=== PATIENT | male | born 1980 | race African-American/Black ===

== ENCOUNTER 2017-01-12 17:06 | Emergency (ER) | payer SELFPAY ==
--- NOTE | 2017-01-12 18:32 | ER Document Report ---
ED Psych Disorder / Suicide - General Chief Complaint: Psych Problem Stated Complaint: ANXIETY,CONFUSION Time Seen by Provider: 01/12/17 17:34 Mode of Arrival: Ambulatory Information source: Patient TRAVEL OUTSIDE OF THE [place] 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 [employer], he is here with a coworker who is also a friend, who reports that patient has been acting quite bizarrely over the past week or so, acting confused at times, paranoid at times, staring off into space, patient reports that he feels as though he is unable to focus, states that he has depression which seems to be getting worse, he abruptly quit his job over the phone today even though he is scheduled to remain in the area until January 24 for work, he had a recent conflict regarding an ex girlfriend who his coworker is friends with on Facebook who he thought there was some inappropraite relationship going on behind his back, patient admits that he has been taking Adderall 10 mg daily for the past few days which he obtained from a friend, he has never been prescribed Adderall but took it from a friend in the past and it helped him focus at the time so he self diagnosed himself as ADD, patient denies having any active suicidal or homicidal ideation but states that he does get extremely depressed at times and thought has crossed his mind before - Related Data Allergies/Adverse Reactions: No Known Allergies Allergy (Verified 01/12/17 17:24) Past Medical History - General Information source: Patient - Social History Smoking Status: Former Smoker Chew tobacco use (# tins/day): No Frequency of alcohol use: None Drug Abuse: None Family History: Reviewed & Not Pertinent Renal/ Medical History: Denies: Hx Peritoneal Dialysis Psychiatric Medical History: Reports: Hx Depression - Immunizations Hx Diphtheria, Pertussis, Tetanus Vaccination: Yes Review of Systems - Review of Systems Constitutional: No symptoms reported EENT: No symptoms reported Cardiovascular: No symptoms reported Respiratory: No symptoms reported Gastrointestinal: No symptoms reported Genitourinary: No symptoms reported Male Genitourinary: No symptoms reported Musculoskeletal: No symptoms reported Skin: No symptoms reported Hematologic/Lymphatic: No symptoms reported Neurological/Psychological: See HPI -: Yes All other systems reviewed and negative Physical Exam - Vital signs Vitals: Pulse Resp BP Pulse Ox 67 18 150/97 H 100 01/12/17 17:19 01/12/17 17:19 01/12/17 17:19 01/12/17 17:19 Interpretation: Normal - General General appearance: Appears well, Alert - HEENT Head: Normocephalic, Atraumatic Eyes: Normal Pupils: PERRL - Respiratory Respiratory status: No respiratory distress Chest status: Nontender Breath sounds: Normal Chest palpation: Normal - Cardiovascular Rhythm: Regular Heart sounds: Normal auscultation Murmur: No - Abdominal Inspection: Normal Distension: No distension Bowel sounds: Normal Tenderness: Nontender Organomegaly: No organomegaly - Back Back: Normal, Nontender - Extremities General upper extremity: Normal inspection, Nontender, Normal color, Normal ROM , Normal temperature General lower extremity: Normal inspection, Nontender, Normal color, Normal ROM , Normal temperature, Normal weight bearing. No: Ga's sign - Neurological Neuro grossly intact: Yes Cognition: Normal Orientation: AAOx4 [place] Coma Scale Eye Opening: Spontaneous [place] Coma Scale Verbal: Oriented [place] Coma Scale Motor: Obeys Commands Elizabeth Coma Scale Total: 15 Speech: Normal Motor strength normal: LUE, RUE, LLE, RLE Sensory: Normal - Psychological Associated symptoms: Flat affect - Skin Skin Temperature: Warm Skin Moisture: Dry Skin Color: Normal Course - Re-evaluation Re-evalutation: 01/12/17 20:26 Patient has somewhat of a bizarre affect on evaluation, at times he does stare off into space, seems to have some possible paranoid delusions as well, possible history of undiagnosed depression, he is not actively suicidal or homicidal at this time but he is agreeable to remaining in the emergency room overnight as a voluntary patient so that mental health can evaluate him in the morning and make recommendations - Vital Signs Vital signs: Temp Pulse Resp BP Pulse Ox 67 18 150/97 H 100 01/12/17 17:19 01/12/17 17:19 01/12/17 17:19 01/12/17 17:19 - Laboratory Result Diagrams: 01/12/17 18:50 01/12/17 18:50 Laboratory results interpreted by me: 01/12/17 18:50 BUN 6 L Total Protein 8.6 H Albumin 5.1 H Salicylates < 1.0 L Acetaminophen < 10 L - EKG Interpretation by Me EKG shows normal: Sinus rhythm Rate: Normal Rhythm: NSR Discharge - Discharge Clinical Impression: Mental health disorder Condition: Stable Disposition: PSYCH HOSP/UNIT
--- NOTE | 2017-01-12 19:16 | ER Document Report ---
ED Psych Disorder / Suicide - General Chief Complaint: Psych Problem Stated Complaint: ANXIETY,CONFUSION Time Seen by Provider: 01/12/17 17:34 Mode of Arrival: Ambulatory Notes: The patient is a 36-year-old male, past medical history anxiety, depression, presents with worsening anxiety, depression and lack of focus. He is also feeling mildly confused. TRAVEL OUTSIDE OF THE [place] IN LAST 30 DAYS: No - Related Data Allergies/Adverse Reactions: No Known Allergies Allergy (Verified 01/12/17 17:24) Past Medical History - General Information source: Patient - Social History Smoking Status: Former Smoker Chew tobacco use (# tins/day): No Frequency of alcohol use: None Drug Abuse: None Family History: Reviewed & Not Pertinent Renal/ Medical History: Denies: Hx Peritoneal Dialysis Psychiatric Medical History: Reports: Hx Depression - Immunizations Hx Diphtheria, Pertussis, Tetanus Vaccination: Yes Review of Systems - Review of Systems Notes: REVIEW OF SYSTEMS: CONSTITUTIONAL: -fevers, -chills EENT: -eye pain, -difficulty swallowing, -nasal congestion CARDIOVASCULAR:-chest pain, -syncope. RESPIRATORY: -cough, -SOB GASTROINTESTINAL: -abdominal pain, - nausea, -vomiting, -diarrhea GENITOURINARY: -dysuria, -hematuria MUSCULOSKELETAL: -back pain, -neck pain SKIN: -rash or skin lesions. HEMATOLOGIC: -easy bruising or bleeding. LYMPHATIC: -swollen, enlarged glands. NEUROLOGICAL: -altered mental status or loss of consciousness, -headache, - neurologic symptoms PSYCHIATRIC: +anxiety, +depression, -SI or HI ALL OTHER SYSTEMS REVIEWED AND NEGATIVE. Physical Exam - Vital signs Vitals: Pulse Resp BP Pulse Ox 67 18 150/97 H 100 01/12/17 17:19 01/12/17 17:19 01/12/17 17:19 01/12/17 17:19 - Notes Notes: PHYSICAL EXAMINATION: GENERAL: Well-appearing, well-nourished and in no acute distress. HEAD: Atraumatic, normocephalic. EYES: Pupils equal round and reactive to light, extraocular movements intact, sclera anicteric, conjunctiva are normal. ENT: nares patent, oropharynx clear without exudates. Moist mucous membranes. NECK: Normal range of motion, supple without lymphadenopathy LUNGS: Breath sounds clear to auscultation bilaterally and equal. No wheezes rales or rhonchi. HEART: Regular rate and rhythm without murmurs ABDOMEN: Soft, nontender, normoactive bowel sounds. No guarding, no rebound. No masses appreciated. EXTREMITIES: Normal range of motion, no pitting or edema. No cyanosis. NEUROLOGICAL: Cranial nerves grossly intact. Normal speech, normal gait. Normal sensory and motor exams. PSYCH: Normal mood, normal affect. SKIN: Warm, Dry, normal turgor, no rashes or lesions noted. Course - Vital Signs Vital signs: Temp Pulse Resp BP Pulse Ox 67 18 150/97 H 100 01/12/17 17:19 01/12/17 17:19 01/12/17 17:19 01/12/17 17:19
[2017-01-12 19:47] LABS: ABSOLUTE EOSINOPHILS # (AUTO) 0.2 10^3/uL (0.0-0.6); ABSOLUTE LYMPHOCYTES (AUTO) 1.4 10^3/uL (0.5-4.7); ABSOLUTE MONOCYTES (AUTO) 0.6 10^3/uL (0.1-1.4); ABSOLUTE NEUT (AUTO) 3.9 10^3/uL (1.7-8.2); BASOPHILS % (AUTO) 0.3 % (0-2); EOSINOPHILS % (AUTO) 2.5 % (0-6); HEMATOCRIT 44.7 % (37.9-51.0); HEMOGLOBIN 15.2 g/dL (13.5-17.0); HGB HCT DIFFERENCE 0.9; LYMPHOCYTES % (AUTO) 23.6 % (13-45); MEAN CORPUSCULAR HEMOGLOBIN 29.6 pg (27.0-33.4); MEAN CORPUSCULAR VOLUME 87 fl (80-97); MONOCYTES % (AUTO) 9.4 % (3-13); RED BLOOD COUNT 5.13 10^6/uL (4.35-5.55); RED CELL DISTRIBUTION WIDTH 13.8 % (11.5-14.0); SEGMENTED NEUTROPHILS % (AUTO) 64.2 % (42-78); WHITE BLOOD COUNT 6.1 10^3/uL (4.0-10.5)
[2017-01-12 19:48] LABS: APPEARANCE,URINE CLEAR; BILIRUBIN,URINE NEGATIVE (NEGATIVE); GLUCOSE, URINE NEGATIVE (NEGATIVE); KETONES,URINE NEGATIVE (NEGATIVE); LEUKOCYTE ESTERASE,URINE NEGATIVE (NEGATIVE); NITRITE,URINE NEGATIVE (NEGATIVE); PROTEIN,URINE NEGATIVE (NEGATIVE); URINE SPECIFIC GRAVITY 1.002; UROBILINOGEN,URINE NEGATIVE mg/dL (<2.0)
[2017-01-12 19:55] LABS: ALANINE AMINOTRANSFERASE 25 U/L (21-72); ALBUMIN 5.1 g/dL (3.5-5.0); ALCOHOL < 10 mg/dL (NONE DETECTED); ALKALINE PHOSPHATASE 60 U/L (38-126); ANION GAP 9 (5-19); ASPARTATE AMINO TRANSFERASE 25 U/L (17-59); BILIRUBIN,DIRECT 0.4 mg/dL (0.0-0.4); BILIRUBIN,TOTAL 0.9 mg/dL (0.2-1.3); BLOOD UREA NITROGEN 6 mg/dL (7-20); CALCIUM 9.9 mg/dL (8.4-10.2); CARBON DIOXIDE 30 mmol/L (22-30); CHLORIDE 100 mmol/L (98-107); CREATININE RESULT 1.06 mg/dL (0.52-1.25); GLUCOSE 97 mg/dL (75-110); POTASSIUM 3.6 mmol/L (3.6-5.0); SODIUM 139.3 mmol/L (137-145); TOTAL PROTEIN 8.6 g/dL (6.3-8.2)
[2017-01-12 20:04] LABS: URINE BARBITURATES SCREEN NEGATIVE; URINE METHADONE SCREEN NEGATIVE; URINE OPIATES LOW NEGATIVE; URINE PHENCYCLIDINE SCREEN NEGATIVE
--- NOTE | 2017-01-13 08:10 | EKG REPORT ---
SEVERITY:- BORDERLINE ECG - SINUS RHYTHM BORDERLINE T ABNORMALITIES, INFERIOR LEADS : Confirmed by: Gabe Ferraro MD 13-Jan-2017 08:09:49
--- NOTE | 2017-01-13 15:26 | ER Document Report ---
Doctor's Note Notes: 01/13/17 15:25 Rounds: Chart reviewed and patient interviewed. Patient was brought to the emergency department last evening for bizarre behavior, confusion, and paranoia. He has been taking some of a friend's Adderall because they made him feel better. Patient denies having any suicidal or homicidal thoughts at any time. All lab studies were essentially normal. All vital signs were essentially normal. Patient appears to be medically stable for transfer or discharge.
[2017-01-13] MEDS ORDERED: HALOPERIDOL 5 MG TABLET PO SCH (18:00)
[2017-01-14] MEDS ORDERED: HALOPERIDOL LACTATE INJ 5 MG/1 ML VIAL IM ONE (05:38)
--- NOTE | 2017-01-14 05:39 | ER Document Report ---
Doctor's Note Notes: 01/14/17 05:38 Patient being held on involuntary commitment and attempting to leave. Patient will need to be restrained at this time as he is uncooperative. He will also be given Haldol.
[2017-01-14] MEDS ORDERED: HALOPERIDOL LACTATE INJ 5 MG/1 ML VIAL ONE (05:42)
--- NOTE | 2017-01-14 10:24 | ER Document Report ---
Doctor's Note Notes: 01/14/17 10:23 Patient is sleeping at this time. 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 He appears to have been becoming increasingly more psychotic recently. He is currently waiting for placement. 01/14/17 14:41 The patient will have his Haldol stopped and start Geodon 20 mg every 8 hours and Cogentin 1 mg daily.
[2017-01-14] MEDS: ZIPRASIDONE HCL 20 MG CAPSULE PO SCH ×2 (15:42→23:30)
[2017-01-14] MEDS: BENZTROPINE MESYLATE 1 MG TABLET PO SCH (15:42)
[2017-01-15] MEDS: ZIPRASIDONE HCL 20 MG CAPSULE PO SCH (06:30)
[2017-01-15] MEDS: BENZTROPINE MESYLATE 1 MG TABLET PO SCH (09:58)
[2017-01-15 15:12] VITALS: BP 128/97
== END 2017-01-15 15:05 | disposition home or self-care (01) ==
LOC: ER 17:06
DX: F29 Unspecified psychosis not due to a substance or known physiological condition (principal); Z78.1 Physical restraint status; Z81.8 Family history of other mental and behavioral disorders; Z87.891 Personal history of nicotine dependence
CPT/HCPCS: 93005; 99285; 96372; 36415; 80307 ×4; 85025; 80053; 81001; 93010; J1630